=== PATIENT | female | born 2000 | race Caucasian/White ===

== ENCOUNTER 2020-04-22 06:07 | Day surgery (SDC) | payer OTHER ==
[2020-04-20 15:44] VITALS: BMI 23.5
[2020-04-22] MEDS ORDERED: Midazolam HCl 2 mg/2 ml Vial ONE (08:11)
[2020-04-22] MEDS ORDERED: Fentanyl 100 MCG/2 ML VIAL ONE (08:14)
[2020-04-22] MEDS ORDERED: Famotidine/PF 20 mg/2ml Vial ONE (08:14)
[2020-04-22] MEDS ORDERED: Ferric Subsulfate (ASTRINGYN) 8 GM VIAL ONE (08:44)
[2020-04-22] MEDS ORDERED: SUGAMMADEX SODIUM 200 MG/2 ML VIAL ONE (08:54)
[2020-04-22] MEDS ORDERED: Ondansetron PF 4 MG/2 ML Vial ONE (09:41)
[2020-04-22] MEDS ORDERED: Rocuronium Bromide 10 MG/ML (10ML VIAL) ONE (09:41)
[2020-04-22] MEDS ORDERED: PROPOFOL 200 MG/20 ML VIAL ONE (09:41)
[2020-04-22] MEDS ORDERED: Lidocaine 1% PF 5 ML VIAL ONE (09:41)
[2020-04-22] MEDS ORDERED: Dexamethasone 20 MG/5 ML VIAL ONE (09:41)
--- NOTE | 2020-04-22 10:00 | OP ---
DATE OF PROCEDURE: 04/22/2020 PREOPERATIVE DIAGNOSES: 1. Chronic tonsillitis. 2. Obstructive adenotonsillar hypertrophy. POSTOPERATIVE DIAGNOSES: 1. Chronic tonsillitis. 2. Obstructive adenotonsillar hypertrophy. PROCEDURE PERFORMED: Tonsillectomy and adenoidectomy over 12 years of age. FINDINGS: Very cryptic, inflamed large tonsils within the oropharynx and adenoids were prominent. PROCEDURE IN DETAIL: After consent was obtained, the patient was identified, brought to the operating room, and placed on the operating table in the supine position. General endotracheal anesthesia and intravenous access were obtained and we proceeded with positioning the patient for oropharyngeal surgery. Oropharyngeal exposure was obtained with a Frances-Alvaro mouth gag after a head drape was placed and secured with a towel clip. The Frances-Alvaro mouth gag was then suspended from the Diane tray and palatal elevation was achieved with a red rubber catheter. We first addressed the adenoid bed and visualized it under direct mirror visualization with a dental mirror. Under direct visualization, the adenoids were removed with multiple passes of the adenoid curet. The [id number] gauze sponge was then placed in the nasopharynx and an appropriate period for hemostasis was observed while the nasal pack was in place. We proceeded with a tonsillectomy. The right tonsil was addressed first. We used a curved Allis to grasp the tonsil and retract it medially as an anterior pillar incision was made with a #12 blade. The retrotonsillar fascial plane was then established and blunt dissection was performed with the suction cautery. Blood vessels were anticipated, identified, and cauterized as they were encountered. Ultimately, dissection was carried to the posterior tonsillar pillar mucosa which was incised hemostatically, as well as the base of tongue connection. The tonsil was then passed off as a specimen and bleeding points within the tonsillar bed were cauterized under direct visualization. We subsequently turned our attention to the contralateral side, where using a similar technique, a near identical procedure was performed. Again, the tonsil was grasped and retracted medially with a curved Allis as an anterior pillar incision was made with a #12 blade. The retrotonsillar fascial plane was established and while the anterior pillar was retracted medially, the hemostatic blunt dissection of the tonsil with a suction cautery was performed with blood vessels anticipated, identified, and cauterized as they were encountered. Again, dissection continued to the base of tongue and posterior tonsillar pillar mucosa which was incised in a hemostatic fashion. The tonsillar beds were then carefully inspected and bleeding points were identified and cauterized with a suction cautery. We then removed the nasopharyngeal pack, suctioned the residual blood and the adenoid bed was then cauterized under direct mirror visualization and residual adenoid tissue was vaporized at this time. After this portion of the procedure, hemostasis was completely obtained. The patient's nasal cavity, nasopharyngeal, and oral cavity were copiously irrigated with iced saline and subsequently suctioned. We then used the red rubber catheter to suction the gastric contents and the patient was subsequently aroused, awakened, and extubated without difficulty and transported to the recovery room in stable condition. There were no complications. Job ID: [id number]
[2020-04-22] MEDS ORDERED: Hydrocodone-Acetamin 15 ML UDCUP ONE (10:18)
== END 2020-04-22 11:00 | disposition home or self-care (01) ==
LOC: SDC 06:07
PROVIDERS: ATTEND Specialist
PROC: 0CTPXZZ Resection of Tonsils, External Approach (ICD-10-PCS; principal; 2020-04-22)
PROC: 0CTQXZZ Resection of Adenoids, External Approach (ICD-10-PCS; principal; 2020-04-22)
DX: J35.01 Chronic tonsillitis (principal); F17.200 Nicotine dependence, unspecified, uncomplicated; J30.2 Other seasonal allergic rhinitis
CPT/HCPCS: 36415; 84702; 85014; 88304; J2250; J3010; S0028